=== PATIENT | female | born 1960 | race Caucasian/White ===

== ENCOUNTER → 2017-06-28 | Outpatient (CLI) | payer OTHER ==
[~2017-06-28] VITALS: Ht 152.4 cm; Wt 99.8 kg
[~2017-06-28] MED LIST: CATAPRES0.1 MG; COLACE100 MG PO; DIOVAN320 MG; NEURONTIN800 MG; PERCOCET 5/3251 TAB PO; RELPAX40 MG PO; RESTORIL30 M1; RESTORIL30 M1 PO; RISA-BID CAPLE1 EACH; TRAMADOL HCL25 GM; ZANTAC300 MG PO
== END | disposition home or self-care (01) ==
LOC: OFIC 805 08:50
DX: H61.23 Impacted cerumen, bilateral (principal); K21.9 Gastro-esophageal reflux disease without esophagitis; Q38.3 Other congenital malformations of tongue; R49.0 Dysphonia; R13.19 Other dysphagia; I10 Essential (primary) hypertension; J39.2 Other diseases of pharynx

== ENCOUNTER 2017-11-15 07:00 | Outpatient (CLI) | payer OTHER ==
[~2017-11-15] VITALS: Ht 154.9 cm; Wt 103.4 kg
== END 2017-11-15 10:00 | disposition home or self-care (01) ==
LOC: SURH 07:00 → RAD 07:00 → O/R 07:00 → RAD 10:00 → O/R 11-22 05:25 → SURH 11-22 05:25 → EDSTATUS 11-22 10:15 → SURH 11-22 10:15
DX: M51.37 Other intervertebral disc degeneration, lumbosacral region (principal); M54.5 Low back pain

== ENCOUNTER 2018-04-27 10:43 | Inpatient (IN) | payer OTHER ==
[~2018-04-27] VITALS: Ht 154.9 cm; Wt 99.8 kg
[~2018-04-27 10:43] MED LIST changes: +CARAFATE1 GM/10 ML PO; +CATAFLAN PO; +DIOVAN HCT 3201 EACH PO; +EMBREL IV; +FLEXERIL PO; +FOLIC ACID1 MG PO; +METROTEXATE IV; +OSTERA TABLET1 EACH PO
[2018-05-01] MEDS ORDERED: GABAPENTIN800 MG PO (14:05)
[2018-05-01] MEDS ORDERED: DOCUSATE SODIU100 MG PO (14:05)
[2018-05-01] MEDS ORDERED: AMOX-CLAV 875-1 EACH PO (14:06)
[2018-05-01] MEDS ORDERED: PERCOCET 5-3251 EACH PO (14:07)
[2018-05-01] MEDS ORDERED: CLONAZEPAM1 MG PO (14:07)
== END 2018-05-02 15:23 | disposition home or self-care (01) | DRG 455 ==
LOC: SURH 04-30 09:58 → SURG 05-01 05:46 → O/R 05-01 05:46 → SURH 05-01 11:29 → SURG 05-01 13:37
PROVIDERS: Orthopaedic Surgery Orthopaedic Surgery of the Spine
PROC: 0SG3071 Fusion of Lumbosacral Joint with Autologous Tissue Substitute, Posterior Approach, Posterior Column, Open Approach (ICD-10-PCS; 2018-05-01)
PROC: 0ST40ZZ Resection of Lumbosacral Disc, Open Approach (ICD-10-PCS; 2018-05-01)
PROC: 07DS3ZZ Extraction of Vertebral Bone Marrow, Percutaneous Approach (ICD-10-PCS; 2018-05-01)
PROC: 0SG30AJ Fusion of Lumbosacral Joint with Interbody Fusion Device, Posterior Approach, Anterior Column, Open Approach (ICD-10-PCS; principal; 2018-05-01 13:30)
DX: M47.27 Other spondylosis with radiculopathy, lumbosacral region (principal); M43.17 Spondylolisthesis, lumbosacral region; M51.17 Intervertebral disc disorders with radiculopathy, lumbosacral region; I10 Essential (primary) hypertension; E66.01 Morbid (severe) obesity due to excess calories; G43.809 Other migraine, not intractable, without status migrainosus; K21.9 Gastro-esophageal reflux disease without esophagitis

== ENCOUNTER 2020-06-01 07:00 | Inpatient (IN) | payer OTHER ==
[~2020-06-01] VITALS: Ht 63.5 cm; Wt 96.2 kg
[~2020-06-01 07:00] MED LIST changes: +AMOX-CLAV 875-1 EACH PO; +CLONAZEPAM1 MG PO; +DOCUSATE SODIU100 MG PO; +GABAPENTIN800 MG PO; +PERCOCET 5-3251 EACH PO
[2020-06-01] MEDS ORDERED: [UNRECOGNIZED DRUG - OTHER] PO (08:26)
[2020-06-01] MEDS ORDERED: [UNRECOGNIZED DRUG - OTHER] PO (08:27)
[2020-06-01] MEDS ORDERED: TRAZODO PO (08:27)
[2020-06-01] MEDS ORDERED: CARAFATE PO (08:27)
[2020-06-01] MEDS ORDERED: ASPIR PO (08:28)
[2020-06-01] MEDS ORDERED: FOLIC ACID PO (08:28)
[2020-06-01] MEDS ORDERED: RELPAX20 MG PO (08:29)
[2020-06-01] MEDS ORDERED: VITAMIN D31 ML PO (08:29)
[2020-06-08] MEDS ORDERED: COLACE100 MG PO (11:33)
[2020-06-08] MEDS ORDERED: ULTRAM50 MG PO (11:33)
[2020-06-08] MEDS ORDERED: NEURONTIN800 MG PO (11:33)
[2020-06-08] MEDS ORDERED: MEDROLPACK PO (11:33)
[2020-06-08] MEDS ORDERED: DIAZEPAM10 MG PO (11:33)
[2020-06-08] MEDS ORDERED: AMOX-CLAV 875-1 EACH PO (11:33)
== END 2020-06-09 13:21 | disposition home or self-care (01) | DRG 460 ==
LOC: O/R 06-08 06:15 → SURH 06-08 06:15
PROVIDERS: ADMIT Orthopaedic Surgery Orthopaedic Surgery of the Spine; ATTEND Orthopaedic Surgery Orthopaedic Surgery of the Spine
PROC: 0SG00A0 Fusion of Lumbar Vertebral Joint with Interbody Fusion Device, Anterior Approach, Anterior Column, Open Approach (ICD-10-PCS; 2020-06-08)
PROC: 0SB20ZZ Excision of Lumbar Vertebral Disc, Open Approach (ICD-10-PCS; principal; 2020-06-08 13:15)
DX: M43.16 Spondylolisthesis, lumbar region (principal); M48.062 Spinal stenosis, lumbar region with neurogenic claudication

== ENCOUNTER 2021-03-12 07:00 | Inpatient (IN) | payer OTHER ==
[~2021-03-12] VITALS: Ht 154.9 cm; Wt 108.9 kg
[~2021-03-12 07:00] MED LIST changes: +ASPIR PO; +CARAFATE PO; +DIAZEPAM10 MG PO; +FOLIC ACID PO; +MEDROLPACK PO; +NEURONTIN800 MG PO; +RELPAX20 MG PO; +TRAZODO PO; +ULTRAM50 MG PO; +VITAMIN D31 ML PO; +[UNRECOGNIZED DRUG - OTHER] PO; +[UNRECOGNIZED DRUG - OTHER] PO
[2021-03-12] MEDS ORDERED: CATAPRES0.3 MG (08:51)
[2021-03-12] MEDS ORDERED: [UNRECOGNIZED DRUG - OTHER] (08:52)
[2021-03-12] MEDS ORDERED: LIPITOR PO (08:53)
[2021-03-12] MEDS ORDERED: [UNRECOGNIZED DRUG - OTHER] PO ×2 (08:54→08:57)
[2021-03-12] MEDS ORDERED: [UNRECOGNIZED DRUG - OTHER] (08:54)
[2021-03-12] MEDS ORDERED: ORENCIA (08:56)
[2021-03-12] MEDS ORDERED: DIOVAN (09:14)
[2021-03-15] MEDS ORDERED: NEURONTIN800 MG PO (10:43)
[2021-03-15] MEDS ORDERED: MEDROLPACK PO (10:43)
[2021-03-15] MEDS ORDERED: AMOX-CLAV 875-1 EACH PO (10:43)
[2021-03-15] MEDS ORDERED: DIAZEPAM5 MG PO (10:43)
== END 2021-03-16 17:28 | DRG 455 ==
LOC: O/R 03-15 05:23 → SURH 03-15 07:00 → O/R 03-15 09:52 → SURH 03-15 14:00 → SURG 03-15 18:39
PROVIDERS: ADMIT Orthopaedic Surgery Orthopaedic Surgery of the Spine; ATTEND Orthopaedic Surgery Orthopaedic Surgery of the Spine
PROC: 0SG00J1 Fusion of Lumbar Vertebral Joint with Synthetic Substitute, Posterior Approach, Posterior Column, Open Approach (ICD-10-PCS; 2021-03-15)
PROC: 07DR0ZZ Extraction of Iliac Bone Marrow, Open Approach (ICD-10-PCS; 2021-03-15)
PROC: 0SG00A0 Fusion of Lumbar Vertebral Joint with Interbody Fusion Device, Anterior Approach, Anterior Column, Open Approach (ICD-10-PCS; principal; 2021-03-15 14:00)
DX: M48.062 Spinal stenosis, lumbar region with neurogenic claudication (principal); M51.36 Other intervertebral disc degeneration, lumbar region

== ENCOUNTER 2023-05-22 10:23 | Outpatient (CLI) | payer OTHER ==
[~2023-05-22 10:23] MED LIST changes: +CATAPRES0.3 MG; +DIAZEPAM5 MG PO; +DIOVAN; +LIPITOR PO; +ORENCIA; +[UNRECOGNIZED DRUG - OTHER]; +[UNRECOGNIZED DRUG - OTHER]; +[UNRECOGNIZED DRUG - OTHER] PO
== END 2023-05-22 10:32 | disposition home or self-care (01) ==
LOC: SONOGRAMA 10:23
PROVIDERS: ATTEND Obstetrics & Gynecology Gynecology
DX: N84.0 Polyp of corpus uteri (principal)